=== PATIENT | male | born 1985 | race African-American/Black ===

== ENCOUNTER 2017-09-23 13:35 | Emergency (ER) | payer OTHER ==
[2017-09-23] MEDS ORDERED: Lidocaine 1% PF 5 ML VIAL ONE (14:11)
[2017-09-23] MEDS ORDERED: Lidocaine 1% w/Epinephrine 1:100K 20 ML VIAL ONE (14:11)
--- NOTE | 2017-09-23 15:32 | RAD ---
LITTLE FINGER 2 VIEWS: HISTORY: Finger injury. FINDINGS: There is minimal distraction of the 0.3 cm triangular fragment from the volar base plate of the middl e phalanx. Distal interphalangeal joint alignment is now anatomic without fracture at this site. IMPRESSION: 1. Interval reduction distal interphalangeal joint dislocation. 2. Flexor tendon ossific avulsion from the base plate middle phalanx. POS: [facility]
== END 2017-09-23 16:00 | disposition home or self-care (01) ==
LOC: ERS 13:35
DX: S63.297A Dislocation of distal interphalangeal joint of left little finger, initial encounter (principal); S56.198 Other injury of flexor muscle, fascia and tendon of left little finger at forearm level; F17.210 Nicotine dependence, cigarettes, uncomplicated; J45.909 Unspecified asthma, uncomplicated; W18.30XA Fall on same level, unspecified, initial encounter
CPT/HCPCS: 26770; J2001

== ENCOUNTER 2022-08-20 05:24 | Emergency (ER) | payer OTHER, SELFPAY ==
[2022-08-20] MEDS ORDERED: Aspirin Chewable 81 MG TAB ONE (05:40)
[2022-08-20] MEDS ORDERED: Ketorolac Tromethamine 30 MG/ML VIAL ONE (05:40)
[2022-08-20 06:29] LABS: #Basophils 0.1 thou/uL (0.0-0.2); #Eosinphils 0.6 thou/uL (0.0-0.7); #Lymphocytes 3.3 thou/uL (1.20-3.40); #Monocytes 1.2 thou/uL (0.11-0.59); #Neutrophils 9.8 thou/uL (1.40-6.50); %Basophils 0.4 % (0.0-1.0); %Eosinophils 4.2 % (0.0-10.0); %Lymphocytes 22.1 % (21.0-51.0); %Monocytes 8.1 % (0.0-10.0); %Neutrophils 65.3 % (42.0-75.0); ALT (SGPT) 49 U/L (8-55); AST (SGOT) 27 U/L (5-34); Albumin 4.6 g/dL (3.5-5.0); Alkaline Phosphatase 103 U/L (40-110); Anion Gap 15 mmol/L (10-20); BUN (Urea Nitrogen) 13 mg/dL (8.9-20.6); Bilirubin, Total 0.6 mg/dL (0.2-1.2); Calc. Creatinine Clearance 0 mL/min (70-130); Calcium 9.4 mg/dL (7.8-10.44); Carbon Dioxide 25 mmol/L (22-29); Chloride 103 mmol/L (98-107); Estimated GFR 69; Globulin 2.9 g/dL (2.4-3.5); Glucose 125 mg/dL (70-105); Hemoglobin 17.2 g/dL (14.0-18.0); Mean Corpuscular Hemoglobin 28.6 pg (27.0-31.0); Mean Corpuscular Volume 89.5 fl (78.0-98.0); Mean Platelet Volume 8.9 fL (7.4-10.4); Platelet Count 230 10x3/uL (130-400); Potassium 4.5 mmol/L (3.5-5.1); Protein, Total 7.5 g/dL (6.0-8.3); RBC Distribution Width 12.7 % (11.5-14.5); Red Blood Cell (RBC) Count 5.99 mill/uL (4.70-6.10); Sodium 138 mmol/L (136-145); White Blood Cell (WBC) Count 14.9 10x3/uL (4.8-10.8)
[2022-08-20 07:05] LABS: RBC Morphology Normal
== END 2022-08-20 06:45 | disposition home or self-care (01) ==
LOC: ERS 05:24
DX: R07.9 Chest pain, unspecified (principal); D72.829 Elevated white blood cell count, unspecified; J45.909 Unspecified asthma, uncomplicated; F17.210 Nicotine dependence, cigarettes, uncomplicated
CPT/HCPCS: 36415; 71045; 80053; 83880; 84484; 85025; 93005; 96374; J1885